=== PATIENT | male | born 1930 | race Two or more races ===

== ENCOUNTER 2017-08-24 06:46 | Inpatient (IN) | payer OTHER, MEDICARE ==
[2017-08-24] VITALS (8 sets, daily range): BP systolic 107–154; BP diastolic 55–79
[~2017-08-24] VITALS: Ht 163.8 cm; Wt 62.4 kg
[2017-08-24 08:40] LABS: HEMATOCRIT 28.9 % (38.0-50.0); MCH 28.1 PG (29.0-34.0); MCHC 32.5 G/DL (30.0-36.0); MCV 86.5 FL (86-99); NRBC (%) 0.8 /100 WBC (0-0); PLATELET COUNT 54 K/uL (156-360); RBC DIS.WIDTH-CV 13.2 % (11.8-14.6); RED BLOOD COUNT 3.34 M/uL (4.00-5.50); WHITE BLOOD COUNT 7.2 K/uL (4.1-10.2)
[2017-08-24 08:45] LABS: INTER. NORMALIZED RATIO 1.5; PROTHROMBIN TIME 16.8 SEC (10.2-12.9)
[2017-08-24 08:48] LABS: CHLORIDE 106 mEq/L (99-109); POTASSIUM 4.2 mEq/L (3.7-5.4); SODIUM 138 mEq/L (136-147)
[2017-08-24 08:50] LABS: GLUCOSE 156 mg/dL (70-99)
[2017-08-24 08:51] LABS: ANION GAP 8 MEQ/L (2-14)
[2017-08-24 08:54] LABS: GFR ESTIMATE (CALCULATED) 32 mL/min/; UREA NITROGEN (BUN) 40 mg/dL (9-23)
[2017-08-24 09:18] LABS: ABS NEUTROPHIL COUNT 5.3; ANISOCYTOSIS 1+; BAND NEUTROPHILS 4.4 % (0-8.0); EOSINOPHIL ABS CT 0.1; EOSINOPHILS 1.8 % (0-5.0); INSTRUMENT ABS NEUTROPHIL CT 4.6 K/uL; LYMPHOCYTES 17.5 % (15.0-45.0); METAMYELOCYTES 0.9 %; MYELOCYTES 6.1 %; OVALOCYTES 1+; PLAT.SUFFICIENCY DECREASED; POIKILOCYTOSIS 1+; SEG.NEUTROPHILS 69.3 % (46.0-76.0)
[2017-08-24] MEDS ORDERED: LOSARTAN POTASS25 MG PO (12:11)
[2017-08-24] MEDS ORDERED: SIMVASTATIN20 MG PO (12:11)
[2017-08-24] MEDS ORDERED: METOPROLOL SUCC25 MG PO (12:12)
[2017-08-24] MEDS ORDERED: ALEVE220 MG PO (12:13)
[2017-08-24 14:44] LABS: ABSOLUTE RETICULOCYTE CT. 0.1 M/uL (0.02-0.08); IMM.RETIC FRACTION 29.4 % (3-19); RETIC HGB EQUIVALENT 30.3 (28-36); RETICULOCYTE COUNT 1.6 % (0.5-1.8)
[2017-08-25 04:32] VITALS: BP 133/71
[2017-08-25 07:00] VITALS: BP 122/60
[2017-08-25 07:01] LABS: MCH 28.3 PG (29.0-34.0); MCHC 32.3 G/DL (30.0-36.0); MCV 87.5 FL (86-99); NRBC (%) 0.6 /100 WBC (0-0); PLATELET COUNT 186 K/uL (156-360); RBC DIS.WIDTH-CV 13.1 % (11.8-14.6); RBC DIS.WIDTH-SD 41.5 % (39-53); RED BLOOD COUNT 2.97 M/uL (4.00-5.50)
[2017-08-25 07:05] LABS: MEAN PLAT.VOLUME 10.7 uM^3 (9.0-12.4)
[2017-08-25 07:27] LABS: ANION GAP 12 MEQ/L (2-14); CHLORIDE 103 MEQ/L (99-109); GFR ESTIMATE (CALCULATED) 34 mL/min/; GLUCOSE 175 mg/dL (70-99); POTASSIUM 3.9 MEQ/L (3.7-5.4); SAMPLE HEMOLYSIS CHECK 0; SAMPLE ICTERIC CHECK 0; SAMPLE LIPEMIA CHECK 0; SODIUM 139 MEQ/L (136-147); UREA NITROGEN (BUN) 39 mg/dL (9-23)
[2017-08-25 11:00] VITALS: BP 132/64
[2017-08-25 15:47] VITALS: BP 128/64
[2017-08-25 23:26] VITALS: BP 146/65
[2017-08-26 00:23] LABS: ADD MIUA? YES; BILIRUBIN NEGATIVE; BLOOD SMALL; COLOR YELLOW ((YELLOW)); GLUCOSE (STRIP) NEGATIVE; KETONES NEGATIVE; LEUKOCYTES NEGATIVE; NITRITE NEGATIVE; PROTEIN (STRIP) NEGATIVE; SPECIFIC GRAVITY 1.013 (1.000-1.030)
[2017-08-26 00:32] LABS: BACTERIA RARE /HPF; EPITHELIAL CELLS RARE /HPF; HYALINE CASTS 0-5 /LPF; MUCUS TRACE /LPF; RED BLOOD CELLS 0-5 /HPF (0-5); WHITE BLOOD CELLS 0-5 /HPF (0-5)
[2017-08-26 01:27] LABS: UR CREATININE CONCENTRATION 113.9 MG/DL
[2017-08-26 06:10] LABS: ANION GAP 8 MEQ/L (2-14); CHLORIDE 110 MEQ/L (99-109); GFR ESTIMATE (CALCULATED) 47 mL/min/; GLUCOSE 157 mg/dL (70-99); POTASSIUM 4.6 MEQ/L (3.7-5.4); SAMPLE HEMOLYSIS CHECK 0; SAMPLE ICTERIC CHECK 0; SAMPLE LIPEMIA CHECK 0; SODIUM 143 MEQ/L (136-147); UREA NITROGEN (BUN) 33 mg/dL (9-23); URIC ACID 7.7 mg/dL (3.1-9.2)
[2017-08-26 06:21] LABS: ABS NEUTROPHIL COUNT 3.9; ANISOCYTOSIS 1+; BAND NEUTROPHILS 5.3 % (0-8.0); EOSINOPHIL ABS CT 0.1; EOSINOPHILS 1.8 % (0-5.0); HYPOCHROMASIA 1+; INSTRUMENT ABS NEUTROPHIL CT 3.3 K/uL; LYMPHOCYTES 20.5 % (15.0-45.0); MCH 29.5 PG (29.0-34.0); MCHC 33.3 G/DL (30.0-36.0); MCV 88.6 FL (86-99); MEAN PLAT.VOLUME 10.9 uM^3 (9.0-12.4); METAMYELOCYTES 3.6 %; MICROCYTOSIS 1+; MYELOCYTES 2.7 %; NRBC (%) 1.1 /100 WBC (0-0); OVALOCYTES 1+; PLAT.SUFFICIENCY DECREASED; PLATELET COUNT 137 K/uL (156-360); POIKILOCYTOSIS 1+; RBC DIS.WIDTH-CV 13.2 % (11.8-14.6); RBC DIS.WIDTH-SD 42.5 % (39-53); SEG.NEUTROPHILS 66.1 % (46.0-76.0); WHITE BLOOD COUNT 5.5 K/uL (4.1-10.2)
[2017-08-26 07:12] LABS: RED BLOOD COUNT 2.37 M/uL (4.00-5.50)
[2017-08-26 08:12] VITALS: BP 138/67
[2017-08-26] MEDS ORDERED: FEOSOL325 MG PO (09:53)
== END 2017-08-26 11:54 | disposition home or self-care (01) | DRG 982 ==
LOC: EME 06:46 → EDOF 14:13 → 5SOUTH 14:13 → ENRESERV 14:22 → 5SOUTH 18:01
PROVIDERS: Emergency Medicine; Internal Medicine; Internal Medicine Nephrology
PROC: 0W33XZZ Control Bleeding in Oral Cavity and Throat, External Approach (ICD-10-PCS; principal; 2017-08-24)
PROC: 30233R1 Transfusion of Nonautologous Platelets into Peripheral Vein, Percutaneous Approach (ICD-10-PCS; principal; 2017-08-24)
PROC: 30233K1 Transfusion of Nonautologous Frozen Plasma into Peripheral Vein, Percutaneous Approach (ICD-10-PCS; principal; 2017-08-24)
DX: N17.9 Acute kidney failure, unspecified (principal); T46.5X5A Adverse effect of other antihypertensive drugs, initial encounter; T39.395A Adverse effect of other nonsteroidal anti-inflammatory drugs [NSAID], initial encounter; T81.31XA Disruption of external operation (surgical) wound, not elsewhere classified, initial encounter; K91.840 Postprocedural hemorrhage of a digestive system organ or structure following a digestive system procedure; Y83.8 Other surgical procedures as the cause of abnormal reaction of the patient, or of later complication, without mention of misadventure at the time of the procedure; R79.1 Abnormal coagulation profile; D69.6 Thrombocytopenia, unspecified; T80.89XA Other complications following infusion, transfusion and therapeutic injection, initial encounter; Y84.8 Other medical procedures as the cause of abnormal reaction of the patient, or of later complication, without mention of misadventure at the time of the procedure; L50.9 Urticaria, unspecified; D64.9 Anemia, unspecified; C61 Malignant neoplasm of prostate; C78.01 Secondary malignant neoplasm of right lung; C78.02 Secondary malignant neoplasm of left lung; C78.7 Secondary malignant neoplasm of liver and intrahepatic bile duct; N18.3 Chronic kidney disease, stage 3 (moderate); I12.9 Hypertensive chronic kidney disease with stage 1 through stage 4 chronic kidney disease, or unspecified chronic kidney disease; I25.10 Atherosclerotic heart disease of native coronary artery without angina pectoris; R59.9 Enlarged lymph nodes, unspecified; Z23 Encounter for immunization; Z95.1 Presence of aortocoronary bypass graft
CPT/HCPCS: 71250; 74176; 76770; 80048; 81003; 82570; 82607; 82728; 82746; 84156; 84550; 85025; 85027; 85045; 85049; 85384; 85610; 86850; 86880; 86900; 86901; 86920; 89190; 90686; 99281; 99285; J1200; J2060; J7030; J7042; P9017; P9035; P9037

== ENCOUNTER 2017-09-10 14:34 | Observation (INO) | payer OTHER, MEDICARE ==
[~2017-09-10] VITALS: Ht 165.1 cm; Wt 60.0 kg
[2017-09-10] VITALS (8 sets, daily range): BP systolic 115–156; BP diastolic 59–86
[~2017-09-10 14:34] MED LIST: ALEVE220 MG PO; FEOSOL325 MG PO; LOSARTAN POTASS25 MG PO; METOPROLOL SUCC25 MG PO; SIMVASTATIN20 MG PO
[2017-09-10 15:57] LABS: HEMATOCRIT 16.2 % (38.0-50.0); MCH 27.9 PG (29.0-34.0); MCHC 31.5 G/DL (30.0-36.0); MCV 88.5 FL (86-99); MEAN PLAT.VOLUME 10.1 uM^3 (9.0-12.4); NRBC (%) 3.7 /100 WBC (0-0); RBC DIS.WIDTH-CV 15.4 % (11.8-14.6); RBC DIS.WIDTH-SD 47.1 % (39-53); WHITE BLOOD COUNT 6.8 K/uL (4.1-10.2)
[2017-09-10 15:59] LABS: PLATELET COUNT 214 K/uL (156-360); RED BLOOD COUNT 1.83 M/uL (4.00-5.50)
[2017-09-10 16:04] LABS: CHLORIDE 97 mEq/L (99-109); POTASSIUM 4.4 mEq/L (3.7-5.4); SODIUM 132 mEq/L (136-147)
[2017-09-10 16:06] LABS: GLUCOSE 260 mg/dL (70-99)
[2017-09-10 16:07] LABS: ANION GAP 13 MEQ/L (2-14)
[2017-09-10 16:08] LABS: TOTAL BILIRUBIN 1.4 mg/dL (0.0-1.0)
[2017-09-10 16:10] LABS: ALKALINE PHOSPHATASE 753 IU/L (3-129); GFR ESTIMATE (CALCULATED) 44 mL/min/
[2017-09-10 16:11] LABS: UREA NITROGEN (BUN) 28 mg/dL (9-23)
[2017-09-10 17:00] LABS: DIRECT BILIRUBIN 0.8 mg/dL (0.0-0.3)
[2017-09-10 17:04] LABS: INTER. NORMALIZED RATIO 1.8; PROTHROMBIN TIME 19.7 SEC (10.2-12.9)
[2017-09-10 17:06] LABS: TROP-I INTERPRETATION NEGATIVE; TROPONIN-I 0.04 ng/mL (0.0-0.30)
[2017-09-10 17:07] LABS: PTT 29.8 SEC (25-37)
[2017-09-10] MEDS ORDERED: LOSARTAN POTASS25 MG PO (17:54)
[2017-09-10] MEDS ORDERED: CYCLOBENZAPRINE5 MG PO (17:54)
[2017-09-10 19:17] LABS: ADD MIUA? YES; BILIRUBIN NEGATIVE; BLOOD SMALL; COLOR YELLOW ((YELLOW)); GLUCOSE (STRIP) NEGATIVE; KETONES NEGATIVE; LEUKOCYTES NEGATIVE; NITRITE NEGATIVE; PROTEIN (STRIP) 30; UROBILINOGEN 0.2 MG/DL (0.2-1.0)
[2017-09-10 19:24] LABS: BACTERIA RARE /HPF; EPITHELIAL CELLS RARE /HPF; MUCUS TRACE /LPF; RED BLOOD CELLS 0-5 /HPF (0-5); UCUL ADDED? NO; WHITE BLOOD CELLS 0-5 /HPF (0-5)
[2017-09-11 00:18] VITALS: BP 166/72
[2017-09-11 04:33] VITALS: BP 157/67
[2017-09-11 07:26] LABS: HEMATOCRIT 26.3 % (38.0-50.0); MCH 28.3 PG (29.0-34.0); MCHC 32.3 G/DL (30.0-36.0); MCV 87.7 FL (86-99); MEAN PLAT.VOLUME 10.2 uM^3 (9.0-12.4); PLATELET COUNT 157 K/uL (156-360); RBC DIS.WIDTH-CV 14.8 % (11.8-14.6); WHITE BLOOD COUNT 5.7 K/uL (4.1-10.2)
[2017-09-11 07:47] LABS: ANION GAP 10 MEQ/L (2-14); CHLORIDE 101 MEQ/L (99-109); GLUCOSE 232 mg/dL (70-99); POTASSIUM 4.4 MEQ/L (3.7-5.4); SAMPLE HEMOLYSIS CHECK 0; SAMPLE ICTERIC CHECK 0; SAMPLE LIPEMIA CHECK 0; SODIUM 136 MEQ/L (136-147); UREA NITROGEN (BUN) 25 mg/dL (9-23)
[2017-09-11 07:50] LABS: GFR ESTIMATE (CALCULATED) > 59 mL/min/
[2017-09-11 08:30] VITALS: BP 165/72
[2017-09-11 11:55] VITALS: BP 147/66
[2017-09-11] MEDS ORDERED: TYLENOL WITH C1 EACH PO (14:34)
== END 2017-09-11 15:04 | disposition home or self-care (01) ==
LOC: EME 14:34 → 3EAST 18:56 → EDOF 18:56 → 3EAST 18:56 → ENRESERV 18:57 → 3EAST 20:40
PROVIDERS: Emergency Medicine; Family Medicine
PROC: 30233N1 Transfusion of Nonautologous Red Blood Cells into Peripheral Vein, Percutaneous Approach (ICD-10-PCS; principal; 2017-09-10)
DX: D64.9 Anemia, unspecified (principal); S06.5X0A Traumatic subdural hemorrhage without loss of consciousness, initial encounter; W01.0XXA Fall on same level from slipping, tripping and stumbling without subsequent striking against object, initial encounter; R97.20 Elevated prostate specific antigen [PSA]; K76.9 Liver disease, unspecified; R91.8 Other nonspecific abnormal finding of lung field; R74.8 Abnormal levels of other serum enzymes; N28.9 Disorder of kidney and ureter, unspecified; M54.5 Low back pain; I10 Essential (primary) hypertension; I25.10 Atherosclerotic heart disease of native coronary artery without angina pectoris; Z95.1 Presence of aortocoronary bypass graft; Z66 Do not resuscitate
CPT/HCPCS: 70450; 71020; 80048; 80053; 80076; 81003; 82248; 83605; 83880; 84484; 85027; 85610; 85730; 86850; 86900; 86901; 86920; 99281; 99285; G0378; J2270; J7030; P9016